=== PATIENT | male | born 1945 | race Caucasian/White ===

== ENCOUNTER → 2016-06-10 | Outpatient (CLI) | payer MEDICARE, BC | END | disposition home or self-care (01) | LOC: PCVCCLINIC 13:54 | PROVIDERS: ATTEND Internal Medicine | DX: Z98.890 Other specified postprocedural states (principal); I10 Essential (primary) hypertension; E78.5 Hyperlipidemia, unspecified; G45.9 Transient cerebral ischemic attack, unspecified; G47.30 Sleep apnea, unspecified | CPT/HCPCS: 80061; 93005; G0463 ==

== ENCOUNTER → 2016-12-30 | Outpatient (CLI) | payer MEDICARE, BC | END | disposition home or self-care (01) | LOC: PCVCCLINIC 14:47 | PROVIDERS: ATTEND Internal Medicine | DX: I10 Essential (primary) hypertension (principal); I48.0 Paroxysmal atrial fibrillation; E78.5 Hyperlipidemia, unspecified; G45.1 Carotid artery syndrome (hemispheric); G47.33 Obstructive sleep apnea (adult) (pediatric); R94.31 Abnormal electrocardiogram [ECG] [EKG]; F17.210 Nicotine dependence, cigarettes, uncomplicated; Z79.82 Long term (current) use of aspirin; Z79.84 Long term (current) use of oral hypoglycemic drugs; Z79.899 Other long term (current) drug therapy | CPT/HCPCS: 80061; 93005; G0463 ==

== ENCOUNTER → 2017-07-07 | Outpatient (CLI) | payer MEDICARE, BC | END | disposition home or self-care (01) | LOC: PCVCCLINIC 11:52 | DX: I48.0 Paroxysmal atrial fibrillation (principal); I10 Essential (primary) hypertension; G45.1 Carotid artery syndrome (hemispheric); G47.33 Obstructive sleep apnea (adult) (pediatric); Z79.01 Long term (current) use of anticoagulants; Z87.891 Personal history of nicotine dependence; Z79.899 Other long term (current) drug therapy; Z79.82 Long term (current) use of aspirin; Z79.84 Long term (current) use of oral hypoglycemic drugs | CPT/HCPCS: 93005; G0463 ==

== ENCOUNTER → 2018-01-11 | Outpatient (CLI) | payer MEDICARE, BC | END | disposition home or self-care (01) | LOC: PCVCCLINIC 11:40 | PROVIDERS: ATTEND Internal Medicine | DX: I48.3 Typical atrial flutter (principal); I10 Essential (primary) hypertension; E78.5 Hyperlipidemia, unspecified; G45.1 Carotid artery syndrome (hemispheric); G47.33 Obstructive sleep apnea (adult) (pediatric); Z79.01 Long term (current) use of anticoagulants; Z79.82 Long term (current) use of aspirin; Z79.899 Other long term (current) drug therapy | CPT/HCPCS: 80061; 93005; G0463 ==

== ENCOUNTER → 2018-01-25 | Outpatient (CLI) | payer MEDICARE, BC ==
--- NOTE | 2018-01-25 12:49 | PCVCIMAG ---
APPROVED REPORT Study performed: 01/25/2018 11:13:18 EXAM: Comprehensive 2D, Doppler, and color-flow Echocardiogram Patient Location: Echo lab Status: routine BSA: 2.17 HR: 84 bpmBP: 140/80 mmHg Rhythm: Atrial Flutter Other Information Study Quality: Technically Limited Indications Hypertension/HDD Atrial Flutter, History of Ablation, TYESHA 2D Dimensions RVDd: 31.39 mm IVSd: 13.62 (7-11mm)LVOT Diam: 25.46 (18-24mm) LVDd: 49.35 mm PWd: 10.78 (7-11mm)Ascending Ao: 33.88 (22-36mm) LVDs: 33.83 (25-40mm) Left Atrium: 39.76 (27-40mm) Aortic Root: 30.39 mm LV Single Plane 4CH: 47.06 % LV Single Plane 2CH: 56.58 % Biplane EF: 52.2 % Volumes Left Atrial Volume (Systole) Single Plane 4CH: 29.59 mLSingle Plane 2CH: 43.37 mL LA ESV Index: 17.00 mL/m2 Aortic Valve AoV Peak Eros.: 1.14 m/s AO Peak Gr.: 5.33 mmHgLVOT Max P.16 mmHg LVOT Max V: 0.89 m/s DL Vmax: 3.95 cm2 Pulmonary Valve PV Peak Gr.: 4.97 mmHg Left Ventricle The left ventricle is normal size. There is normal LV segmental wall motion. There is normal left ventricular wall thickness. Left ventricular systolic function is at lower limits of normal. LVEF 50%. This study is not technically sufficient to allow evaluation of the LV diastolic function due to atrial flutter. Right Ventricle The right ventricle is normal size. The right ventricular systolic function is normal. Atria The left atrium size is normal. The right atrium size is normal. Aortic Valve The aortic valve is trlieaflet, minimally sclerotic No aortic regurgitation is present. There is no aortic valvular stenosis. Mitral Valve The mitral valve is normal in structure. Trace mitral regurgitation. No evidence of mitral valve stenosis. Tricuspid Valve The tricuspid valve is normal in structure. There is no tricuspid valve regurgitation noted. Pulmonic Valve The pulmonary valve is normal in structure. There is no pulmonic valvular regurgitation. Great Vessels The aortic root is normal in size. IVC is normal in size and collapses >50% with inspiration. Pericardium There is no pericardial effusion. <Conclusion> Left ventricular systolic function is at lower limits of normal. There is normal LV segmental wall motion. LVEF 50%. The aortic valve is trlieaflet, minimally sclerotic. No aortic regurgitation or stenosis The mitral valve is normal in structure. Trace mitral regurgitation. Pulmonary artery pressure could not be reliably ascertained There is no pericardial effusion.
== END | disposition home or self-care (01) ==
LOC: PCVCIMAG 10:59
PROVIDERS: ATTEND Internal Medicine
DX: I48.92 Unspecified atrial flutter (principal); I10 Essential (primary) hypertension
CPT/HCPCS: 93306

== ENCOUNTER → 2018-06-07 | Outpatient (CLI) | payer MEDICARE, BC | END | disposition home or self-care (01) | LOC: PCVCCLINIC 11:25 | PROVIDERS: ATTEND Internal Medicine | DX: I48.0 Paroxysmal atrial fibrillation (principal); R06.02 Shortness of breath; I10 Essential (primary) hypertension; E78.5 Hyperlipidemia, unspecified; G47.33 Obstructive sleep apnea (adult) (pediatric); G47.30 Sleep apnea, unspecified; Z79.01 Long term (current) use of anticoagulants; Z87.891 Personal history of nicotine dependence | CPT/HCPCS: 36415; 80061; 93005; G0463 ==

== ENCOUNTER → 2018-07-12 | Outpatient (CLI) | payer MEDICARE, BC ==
[~2018-07-12] MED LIST: REGADENOSON 0.4 MG/5 ML DISP.SYRIN. IV ONE
--- NOTE | 2018-07-12 13:46 | PCVCIMAG ---
APPROVED REPORT Study performed: 07/12/2018 12:43:24 EXAM: Comprehensive 2D, Doppler, and color-flow Echocardiogram Patient Location: Echo lab Status: routine BSA: 2.17 HR: 97 bpmBP: 124/68 mmHg Rhythm: Atrial Flutter Other Information Study Quality: Adequate Risk Factors: Cardiac Risk Factors: HTN, Hyperlipidemia Indications Arrhythmia Dizziness and Vertigo Dyspnea 2D Dimensions IVSd: 12.42 (7-11mm)LVOT Diam: 22.00 (18-24mm) LVDd: 40.55 mm PWd: 11.21 (7-11mm)Ascending Ao: 31.79 (22-36mm) LVDs: 26.99 (25-40mm) Left Atrium: 41.74 (27-40mm) Aortic Root: 31.53 mm LV Single Plane 4CH: 55.93 % LV Single Plane 2CH: 58.39 % Biplane EF: 57.0 % Volumes Left Atrial Volume (Systole) Single Plane 4CH: 31.98 mLSingle Plane 2CH: 38.48 mL LA ESV Index: 17.00 mL/m2 Aortic Valve AoV Peak Eros.: 1.70 m/s AO Peak Gr.: 11.60 mmHgLVOT Max P.98 mmHg LVOT Max V: 1.00 m/s DL Vmax: 2.27 cm2 Pulmonary Valve PV Peak Eros.: 1.18 m/sPV Peak Gr.: 5.52 mmHg Tricuspid Valve TR Peak Eros.: 2.74 m/sRAP Estimate: 7.00 mmHg TR Peak Gr.: 29.97 mmHg PA Pressure: 37.00 mmHg Left Ventricle The left ventricle is normal size. There is normal LV segmental wall motion. Mild concentric left ventricular hypertrophy. Left ventricular systolic function is normal. The left ventricular ejection fraction is within the normal range. LVEF is 55-60%. Mild diastolic dysfunction is present (impaired relaxation pattern). Right Ventricle The right ventricle is normal size. The right ventricular systolic function is normal. Atria The left atrium size is normal. The right atrium size is normal. Aortic Valve The aortic valve is normal in structure. No aortic regurgitation is present. There is no aortic valvular stenosis. Mitral Valve Mild mitral annular calcification. Mild mitral regurgitation. No evidence of mitral valve stenosis. Tricuspid Valve The tricuspid valve is normal in structure. Mild tricuspid regurgitation. Pulmonary artery pressure is 37 mmHg. Pulmonic Valve The pulmonary valve is normal in structure. Trace pulmonic regurgitation. Great Vessels The aortic root is normal in size. IVC is normal in size and collapses >50% with inspiration. Pericardium There is no pericardial effusion. <Conclusion> Left ventricular systolic function is normal. There is normal LV segmental wall motion. LVEF is 55-60%. Mild diastolic dysfunction The aortic valve is normal in structure. No aortic regurgitation or stenosis Mild mitral annular calcification. Mild mitral regurgitation. Mild tricuspid regurgitation. Pulmonary artery pressure of 37 mmHg. There is no pericardial effusion.
--- NOTE | 2018-07-12 17:01 | PCVCIMAG ---
APPROVED REPORT Imaging Protocol: Rest Tc-99m/Stress Tc-99m 1 day Study performed: 07/12/2018 13:07:31 Indication: Dyspnea, Atrial Fibrillation, Near Syncope Patient Location: Out-Patient Stress Nurse: Evangelina Cruz RN, Marguerite Guevara RN [place] Tech:Lorna Campoverdefelisha [facility] Ht: 5 ft 8 in Wt: 230 lbs BSA: 2.17 m2 HR: 60 bpm BP: 121/83 mmHg BMI: 34.9 Rhythm: Sinus Rhythm with intermittent Atrial Fibrillation Medical History Medical History: Hyperlipidemia, HTN, Former Smoker Medications: Pradaxa, Lisinopril-HCTZ, Metformin, Zocor, Desyrel Allergies: No known drug allergies Cardiac Risk Factors: Age Pretest Chest Pain Characteristics: No chest pain Exercise History: Sedentary Resting Data Rest SPECT myocardial perfusion imaging was performed in supine position 45 minutes following the intravenous injection of 10.2 mCi of Tc-99m Sestamibi. Time of rest injection: 1230 Date: 07/12/2018 Administration Route: IV Administration Site: Right Hand Pharmacologic Stress Pharmacologic stress test was performed by injecting Regadenoson 0.4 mg IV push over 10-15 seconds immediately followed by the intravenous injection of 34.9 mCi of Tc-99m Sestamibi. Time of stress injection: 1345 Date: 07/12/2018 Administration Route: IV Administration Site: Right Hand Gated Stress SPECT was performed 45 minutes after stress injection. The images were gated to evaluate regional wall motion and calculate left ventricular ejection fraction. Stress Test Details Stress Test: Pharmacologic stress testing performed using 0.4 mg of regadenoson per 5 mL given IV over 10 seconds. Reason for pharmacologic stress test: physical limitation. HRMax Heart Rate (APMHR): 146 bpm Resting HR: 60 bpmTarget HR (85% APMHR): 124 bpm Max HR Achieved: 92 bpm % of APMHR: 63 Recovery HR: 96 bpm BP Resting BP: 121/83 mmHg Max BP: 144/95 mmHg Recovery BP: 125/72 mmHg ECG Resting ECG: Sinus Rhythm with atrial premature complexes Stress ECG: Sinus Rhythm with atrial premature complexes ST Change: None Maximum ST Deviation: 0 mm Arrhythmia: APC's Recovery ECG: Sinus Rhythm with atrial premature complexes Recovery ST Change: Sinus Rhythm with atrial premature complexes Recovery ST Deviation: 0 mm Recovery Arrhythmia: APC Clinical Reason for Termination: Completed protocol Stress Symptoms: Dyspnea, Lightheaded Exercise duration: 0 min 55 sec Symptoms resolved with caffeine. Stress ECG Conclusion ECG: Non-ischemic Clinical: Non-ischemic Study Quality Study: Good Study Data Post stress, the left ventricular ejection was 70%.. SSS: 0 SRS: 0 SDS: 0 TID = 0.72. Perfusion No evidence of stress induced ischemia or prior myocardial infarction. Wall Motion Normal left ventricular size and function with no regional wall motion abnormalities. Nuclear Conclusion No evidence of stress induced ischemia or prior myocardial infarction. Normal left ventricular size and function with no regional wall motion abnormalities. Post stress, the left ventricular ejection was 70%. No prior study available for comparison. Interpreted by: Usama Gomez MD Electronically Approved: 07/12/2018 16:45:49 <Conclusion> ECG: Non-ischemic Clinical: Non-ischemic
== END | disposition home or self-care (01) ==
LOC: PCVCIMAG 11:14
PROVIDERS: ATTEND Internal Medicine
DX: I08.1 Rheumatic disorders of both mitral and tricuspid valves (principal); I48.0 Paroxysmal atrial fibrillation; I10 Essential (primary) hypertension; E78.5 Hyperlipidemia, unspecified; R55 Syncope and collapse; I48.92 Unspecified atrial flutter; R06.00 Dyspnea, unspecified; Z79.01 Long term (current) use of anticoagulants; Z87.891 Personal history of nicotine dependence
CPT/HCPCS: 78452; 93005; 93017; 93306; A9500; G0463; J2785

== ENCOUNTER → 2019-01-24 | Outpatient (CLI) | payer MEDICARE, BC | END | disposition home or self-care (01) | LOC: PCVCCLINIC 16:26 | PROVIDERS: ATTEND Internal Medicine | DX: I48.0 Paroxysmal atrial fibrillation (principal); I10 Essential (primary) hypertension; R94.31 Abnormal electrocardiogram [ECG] [EKG]; I44.4 Left anterior fascicular block; E78.5 Hyperlipidemia, unspecified; G47.33 Obstructive sleep apnea (adult) (pediatric); E66.9 Obesity, unspecified; Z86.73 Personal history of transient ischemic attack (TIA), and cerebral infarction without residual deficits; Z79.01 Long term (current) use of anticoagulants; Z90.49 Acquired absence of other specified parts of digestive tract; Z98.52 Vasectomy status; Z87.891 Personal history of nicotine dependence; Z72.89 Other problems related to lifestyle; Z79.899 Other long term (current) drug therapy | CPT/HCPCS: 36415; 80061; 93005; G0463 ==